=== PATIENT | male | born 1960 | race African-American/Black ===

== ENCOUNTER 2017-11-14 08:53 | Emergency (ER) | payer BC ==
[2017-11-14 09:15] VITALS: BP 141/97
--- NOTE | 2017-11-14 09:21 | UC ---
Back Pain HPI - HPI Summary HPI Summary: Patient has a history of chronic low back pain. Was being seen previously at the pain clinic by Dr. Candelario and receiving SID. Has not been there since March as he states the injections were not providing him with long-lasting pain relief so he stopped going. He has been taking ibuprofen and just dealing with the discomfort. He states he woke up this morning and was hardly able to get out of bed. 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 There has been no recent acute injury. He states the pain is on the left low back that he often has numbness and tingling radiating down his right leg. No saddle anesthesia. Is not interested in narcotic pain medicine. Is just looking for options. - History of Current Complaint Chief Complaint: UCBackPain Stated Complaint: BACK PAIN Time Seen by Provider: 11/14/17 09:16 Hx Obtained From: Patient Onset/Duration: Sudden Onset, Lasting Days, Still Present Timing: Constant Severity Initially: Moderate Severity Currently: Moderate Pain Intensity: 6 Pain Scale Used: 0-10 Numeric Character: Sharp Aggravating Factor(s): Movement, Bending Alleviating Factor(s): Rest Associated Signs And Symptoms: Positive: Tingling. Negative: Swelling, Redness , Bruising, Bladder Incontinence, Bowel Incontinence - Allergies/Home Medications Allergies/Adverse Reactions: Allergies Allergy/AdvReac Type Severity Reaction Status Date / Time No Known Allergies Allergy Verified 11/14/17 09:15 PMH/Surg Hx/FS Hx/Imm Hx - Additional Past Medical History Additional PMH: CHRONIC LOW BACK PAIN Cardiovascular History: Hypertension Neurological History: TIA - Surgical History Surgical History: Yes Surgery Procedure, Year, and Place: RT THUMB ORIF - Family History Known Family History: Positive: Hypertension - Social History Alcohol Use: None Substance Use Type: None Smoking Status (MU): Heavy Every Day Tobacco Smoker Type: Cigarettes Amount Used/How Often: 1/2 ppd Length of Time of Smoking/Using Tobacco: since age 24 Have You Smoked in the Last Year: Yes Review of Systems Constitutional: Negative Skin: Negative Respiratory: Negative Cardiovascular: Negative Gastrointestinal: Negative Musculoskeletal: Decreased ROM, Myalgia All Other Systems Reviewed And Are Negative: Yes Physical Exam Triage Information Reviewed: Yes Appearance: Well-Appearing, Well-Nourished, Pain Distress - MOD Vital Signs: Initial Vital Signs Temp 98.9 F 11/14/17 09:05 Pulse 97 11/14/17 09:05 Resp 16 11/14/17 09:05 BP 141/97 11/14/17 09:05 Pulse Ox 100 11/14/17 09:05 Vital Signs Reviewed: Yes Eyes: Positive: Conjunctiva Clear ENT: Positive: Hearing grossly normal Neck: Positive: Supple Respiratory: Positive: No respiratory distress, No accessory muscle use Cardiovascular: Positive: Pulses Normal Abdomen Description: Positive: Soft Musculoskeletal: Positive: No Edema, ROM Limited @ - BACK Neurological: Positive: Alert Psychological: Positive: Age Appropriate Behavior Skin: Negative: rashes Back Pain Course/Dx - Course Course Of Treatment: PT DECLINES NARCOTICS - Differential Dx/Diagnosis Provider Diagnoses: ACUTE ON CHRONIC LOW BACK PAIN Discharge - Sign-Out/Discharge Documenting (check all that apply): Discharge/Admit/Transfer - Discharge Plan Condition: Stable Disposition: HOME Prescriptions: Ketorolac TAB * [Toradol TAB *] 10 mg PO Q6H PRN #20 tab PRN Reason: Pain Patient Education Materials: Chronic Back Pain (ED) Forms: *Gen. Provider Communication, *Work Release Referrals: Kaley Candelario MD [Medical Doctor] - 1 Week Guille Perez DO [Doctor of Osteopathy] - If Needed Additional Instructions: YOU MAY BENEFIT FROM RETURNING TO PAIN MANAGEMENT. CALL DR. CANDELARIO'S OFFICE FOR FOLLOW-UP. ALSO CONSIDER THE [facility]OW. REFERRAL FOR PHYSICAL THERAPY PROVIDED TODAY. [facility] [address] [place] [id number] - Billing Disposition and Condition Condition: STABLE Disposition: Home
== END 2017-11-14 10:22 | disposition home or self-care (01) ==
LOC: UCEAST 08:53
DX: M54.5 Low back pain (principal); G89.29 Other chronic pain; I10 Essential (primary) hypertension; Z86.73 Personal history of transient ischemic attack (TIA), and cerebral infarction without residual deficits; F17.210 Nicotine dependence, cigarettes, uncomplicated
CPT/HCPCS: 99212; G0463

== ENCOUNTER 2018-03-06 07:02 | Emergency (ER) | payer BC ==
[2018-03-06 07:16] VITALS: BP 148/86
[2018-03-06] MEDS ORDERED: Ketorolac INJ* 30 MG/ML 1 ML VIAL IM ONE (07:39)
--- NOTE | 2018-03-06 07:39 | UC ---
Back Pain HPI - HPI Summary HPI Summary: The patient is a 58-year-old male with a history of chronic low back pain due to degenerative disc disease. States he has 2 herniated lumbar disc. 2 days ago he was lifting groceries and bent down to place a bag on the floor. He felt a sudden pop in his back and experienced right leg numbness. The numbness persists in his right leg but has lessened. He has no bladder or bowel dysfunction. Is not taken anything for pain. He frequently goes to the pain clinic and has steroid injections. - History of Current Complaint Chief Complaint: UCBackPain Stated Complaint: BACK PAIN Time Seen by Provider: 03/06/18 07:28 Hx Obtained From: Patient Onset/Duration: Sudden Onset Timing: Constant Severity Initially: Severe Severity Currently: Severe Pain Intensity: 8 Pain Scale Used: 0-10 Numeric Character: Dull, Aching, Throbbing, Spasmodic Aggravating Factor(s): Movement, Bending, Walking, Cough Alleviating Factor(s): Rest Associated Signs And Symptoms: Positive: Numbness - right leg Full Body (No Head): 1 - pain - Allergies/Home Medications Allergies/Adverse Reactions: Allergies Allergy/AdvReac Type Severity Reaction Status Date / Time No Known Allergies Allergy Verified 03/06/18 07:08 Home Medications: Home Medications Atorvastatin* [Lipitor 10 MG*] 10 mg PO DAILY 03/06/18 [History Confirmed ] PMH/Surg Hx/FS Hx/Imm Hx Previously Healthy: Yes Endocrine History: Dyslipidemia Cardiovascular History: Hypertension - Surgical History Surgical History: Yes Surgery Procedure, Year, and Place: RT THUMB ORIF - Family History Known Family History: Positive: Hypertension - Social History Alcohol Use: None Substance Use Type: None Smoking Status (MU): Light Every Day Tobacco Smoker Type: Cigarettes Amount Used/How Often: 1/2 ppd Length of Time of Smoking/Using Tobacco: since age 24 Have You Smoked in the Last Year: Yes Household Exposure Type: Cigarettes Review of Systems Constitutional: Negative Skin: Negative Eyes: Negative ENT: Negative Respiratory: Negative Cardiovascular: Negative Gastrointestinal: Negative Genitourinary: Negative Motor: Negative Neurovascular: Negative Musculoskeletal: Myalgia Neurological: Negative Psychological: Negative Is Patient Immunocompromised?: No All Other Systems Reviewed And Are Negative: Yes Physical Exam Triage Information Reviewed: Yes Appearance: Well-Appearing, Well-Nourished, Pain Distress Vital Signs: Initial Vital Signs Temp 97 F 03/06/18 07:10 Pulse 78 03/06/18 07:10 Resp 16 03/06/18 07:10 BP 148/86 03/06/18 07:10 Pulse Ox 100 03/06/18 07:10 Vital Signs Reviewed: Yes Eyes: Positive: Conjunctiva Clear ENT: Positive: Hearing grossly normal. Negative: Nasal congestion, Nasal drainage, Tonsillar swelling, Dental tenderness Neck: Positive: Supple, Nontender Respiratory: Positive: Lungs clear, Normal breath sounds, No respiratory distress, No accessory muscle use Cardiovascular: Positive: RRR, No Murmur Musculoskeletal: Positive: ROM Intact, No Edema Neurological: Positive: Alert Psychological Exam: Normal Back Pain Course/Dx - Differential Dx/Diagnosis Provider Diagnoses: sciatica Discharge - Sign-Out/Discharge Documenting (check all that apply): Patient Departure All imaging exams completed and their final reports reviewed: No Studies - Discharge Plan Condition: Stable Disposition: HOME Prescriptions: Cyclobenzaprine TAB* [Flexeril 10 MG TAB*] 5 mg PO TID PRN #12 tab PRN Reason: Pain Naproxen Sodium [Naproxen Sodium 500 MG TAB] 500 mg PO BID PRN #30 tab PRN Reason: Pain Patient Education Materials: Sciatica (ED) Referrals: Kevin Perez MD [Primary Care Provider] - As Soon As Possible Additional Instructions: recheck first available appt with your MD or at pain clinic return for new or worsening symptoms muscle relaxer may cause drowsiness don't take and drive or work - Billing Disposition and Condition Condition: STABLE Disposition: Home
== END 2018-03-06 08:15 | disposition home or self-care (01) ==
LOC: UCEAST 07:02
DX: M54.40 Lumbago with sciatica, unspecified side (principal); E78.5 Hyperlipidemia, unspecified; F17.210 Nicotine dependence, cigarettes, uncomplicated; I10 Essential (primary) hypertension; Z79.899 Other long term (current) drug therapy
CPT/HCPCS: 99212; G0463; J1885

== ENCOUNTER 2018-05-13 11:00 | Emergency (ER) | payer BC ==
[2018-05-13 11:25] VITALS: BP 150/93
--- NOTE | 2018-05-13 11:46 | UC ---
FLU HPI - HPI Summary HPI Summary: 58 y/o male with + TOB , + htn, states has increased cough, painful swallowing , body chills, fever- tactile, bady aches. no SOB. 1/3-1/2 PPD smoking. - History of Current Complaint Chief Complaint: UCRespiratory Stated Complaint: SORE THROAT,FEVER Time Seen by Provider: 05/13/18 11:42 Hx Obtained From: Patient Onset/Duration: Sudden Onset, Lasting Days Severity Currently: Mild Severity Initially: Moderate Pain Intensity: 7 Pain Scale Used: 0-10 Numeric Associated Signs & Symptoms: Positive: Fever - tactile, F/C, Cough, Sore Throat. Negative: Headache Related Hx: Smoking - Allergy/Home Medications Allergies/Adverse Reactions: Allergies Allergy/AdvReac Type Severity Reaction Status Date / Time No Known Allergies Allergy Verified 05/13/18 11:26 PMH/Surg Hx/FS Hx/Imm Hx Previously Healthy: Yes - htn - Surgical History Surgical History: Yes Surgery Procedure, Year, and Place: RT THUMB ORIF - Family History Known Family History: Positive: Hypertension - Social History Alcohol Use: None Substance Use Type: None Smoking Status (MU): Light Every Day Tobacco Smoker Type: Cigarettes Amount Used/How Often: 1/2 ppd Length of Time of Smoking/Using Tobacco: since age 24 Have You Smoked in the Last Year: Yes Household Exposure Type: Cigarettes Review of Systems All Other Systems Reviewed And Are Negative: Yes Constitutional: Positive: Fever, Chills, Fatigue ENT: Positive: Sore Throat, Sinus Congestion, Sinus Pain/Tenderness Respiratory: Positive: Cough Is Patient Immunocompromised?: No Physical Exam Triage Information Reviewed: Yes Appearance: Well-Appearing, No Pain Distress, Well-Nourished Vital Signs: Initial Vital Signs Temp 98 F 05/13/18 11:21 Pulse 91 05/13/18 11:21 Resp 18 05/13/18 11:21 BP 150/93 05/13/18 11:21 Pulse Ox 98 05/13/18 11:21 Eyes: Positive: Conjunctiva Clear ENT: Positive: Pharyngeal erythema - + exudates b/l with moderate erythema,, TMs normal, Tonsillar swelling, Tonsillar exudate, Uvula midline. Negative: Sinus tenderness Neck: Positive: Supple, Nontender, Enlarged Nodes @ - minimal submand, b/l, non- tender Respiratory: Positive: Chest non-tender, Lungs clear, Normal breath sounds, No respiratory distress, No accessory muscle use. Negative: Crackles, Rhonchi, Stridor, Wheezing, Expiration Cardiovascular: Positive: RRR, No Murmur Psychological Exam: Normal Skin Exam: Normal Flu Course/Dx - Course Course Of Treatment: rapid strep- negative, likely viral, conservative treatment, motrin for pain, increase fluids - Differential Dx/Diagnosis Differential Diagnosis/HQI/PQRI: Bronchitis, Broncholiolitis, Upper Respiratory Infection Provider Diagnosis: Viral syndrome Discharge - Sign-Out/Discharge Documenting (check all that apply): Patient Departure All imaging exams completed and their final reports reviewed: No Studies - Discharge Plan Condition: Good Disposition: HOME Prescriptions: Albuterol HFA INHALER* [Ventolin HFA Inhaler*] 1 puff INH Q4H PRN #1 mdi PRN Reason: shortness of breath Patient Education Materials: Viral Syndrome (ED) Forms: *Work Release Referrals: Kevin Perez MD [Primary Care Provider] - Additional Instructions: - Increase fluids - Motrin/ tylenol for pain - Albuterol as needed for shortness of breath - work note given - Cough drops, cough medicine for cough - Billing Disposition and Condition Condition: GOOD Disposition: Home
== END 2018-05-13 12:28 | disposition home or self-care (01) ==
LOC: UCEAST 11:00
DX: B34.9 Viral infection, unspecified (principal); F17.210 Nicotine dependence, cigarettes, uncomplicated
CPT/HCPCS: 87651; 99212; G0463

== ENCOUNTER 2018-06-01 12:11 | Emergency (ER) | payer BC ==
[2018-06-01 12:24] VITALS: BP 149/96
--- NOTE | 2018-06-01 12:53 | UC ---
Throat Pain/Nasal Crow HPI - HPI Summary HPI Summary: uri sx 2 weeks ago sen and dx with viral illness-all symptoms resolved--now for the past 3-4 days nasal congestion, sore under tongue, sore throat and cough, no fevers, nausea or vomiting - History of Current Complaint Chief Complaint: UCGeneralIllness Stated Complaint: SORE THROAT Time Seen by Provider: 06/01/18 12:40 Hx Obtained From: Patient Onset/Duration: Sudden Onset, Lasting Days - 3, Still Present Severity: Mild Pain Intensity: 1 Pain Scale Used: 0-10 Numeric Cough: Productive Associated Signs & Symptoms: Positive: Negative, Sinus Discomfort, Nasal Discharge Related History: Smoking - Allergies/Home Medications Allergies/Adverse Reactions: Allergies Allergy/AdvReac Type Severity Reaction Status Date / Time No Known Allergies Allergy Verified 06/01/18 12:25 PMH/Surg Hx/FS Hx/Imm Hx Previously Healthy: No Endocrine History: Dyslipidemia Cardiovascular History: Hypertension - Surgical History Surgical History: Yes Surgery Procedure, Year, and Place: RT THUMB ORIF - Family History Known Family History: Positive: Hypertension - Social History Occupation: Employed Full-time Lives: With Family Alcohol Use: None Substance Use Type: None Smoking Status (MU): Light Every Day Tobacco Smoker Type: Cigarettes Amount Used/How Often: 1/2 ppd Length of Time of Smoking/Using Tobacco: since age 24 Have You Smoked in the Last Year: Yes Household Exposure Type: Cigarettes Cessation Counseling: Counseled 3+Min - 10 Min Review of Systems All Other Systems Reviewed And Are Negative: Yes Constitutional: Positive: Negative Skin: Positive: Negative Eyes: Positive: Negative ENT: Positive: Sore Throat, Nasal Discharge, Sinus Congestion Respiratory: Positive: Cough Cardiovascular: Positive: Negative Gastrointestinal: Positive: Negative Genitourinary: Positive: Negative Motor: Positive: Negative Neurovascular: Positive: Negative Musculoskeletal: Positive: Negative Neurological: Positive: Negative Psychological: Positive: Negative Is Patient Immunocompromised?: No Physical Exam Triage Information Reviewed: Yes Appearance: Well-Appearing, No Pain Distress, Well-Nourished Vital Signs: Initial Vital Signs Temp 98.6 F 06/01/18 12:19 Pulse 82 06/01/18 12:19 Resp 16 06/01/18 12:19 BP 149/96 06/01/18 12:19 Pulse Ox 100 06/01/18 12:19 Vital Signs Reviewed: Yes Eye Exam: Normal Eyes: Positive: Conjunctiva Clear ENT Exam: Normal ENT: Positive: Normal ENT inspection, Hearing grossly normal, Pharynx normal, Nasal congestion, Nasal drainage, TMs normal, Uvula midline, Other - viral sore under tongue. Negative: Trismus, Muffled voice, Hoarse voice, Dental tenderness Dental Exam: Normal Neck exam: Normal Neck: Positive: Supple, Nontender, No Lymphadenopathy Respiratory Exam: Normal Respiratory: Positive: Chest non-tender, Lungs clear, No respiratory distress, No accessory muscle use, Wheezing Cardiovascular Exam: Normal Cardiovascular: Positive: RRR, No Murmur, Pulses Normal, Brisk Capillary Refill Abdominal Exam: Normal Musculoskeletal Exam: Normal Musculoskeletal: Positive: Strength Intact, ROM Intact, No Edema Neurological Exam: Normal Neurological: Positive: Alert, Muscle Tone Normal Psychological Exam: Normal Skin Exam: Normal Diagnostics - Laboratory Diagnostic Studies Completed/Ordered: rst (-) Throat Pain/Nasal Course/Dx - Course Assessment/Plan: flonase, albuterol, nagic mouth wash, add zithromax if not improving in 2-3 days, nicotine cesassation information, foolow with pcp regarding evevated blood pressure - Differential Dx/Diagnosis Provider Diagnosis: Nicotine dependence, Hypertension, URI, acute, Aphthous ulcer Discharge - Sign-Out/Discharge Documenting (check all that apply): Patient Departure All imaging exams completed and their final reports reviewed: No Studies - Discharge Plan Condition: Stable Disposition: HOME Prescriptions: Albuterol HFA INHALER* [Ventolin HFA Inhaler*] 2 puff INH Q4H PRN #1 mdi PRN Reason: cough wheeze Azithromycin TAB* [Zithromax TAB (Z-KELSI) 250 mg #6 tabs] 2 tab PO .TODAY, THEN 1 DAILY #1 kelsi Fluticasone NASAL SPRAY 50MCG* [Flonase NASAL SPRAY 50MCG*] 2 spray BOTH NARES DAILY #1 btl Magic Mouth Was-CLARISA/MAAL/LIDO* 5 ml SWISH SPIT QID #200 ml Patient Education Materials: How to Stop Smoking (ED), Canker Sores (ED), Upper Respiratory Infection (DC), Hypertension (ED), How to Use a Metered-Dose Inhaler and a Spacer (ED), How to Use Nasal [place] (ED) Forms: *Work Release Referrals: Kevin Perez MD [Primary Care Provider] - 1 Week - Billing Disposition and Condition Condition: STABLE Disposition: Home
== END 2018-06-01 13:35 | disposition home or self-care (01) ==
LOC: UCEAST 12:11
DX: J06.9 Acute upper respiratory infection, unspecified (principal); I10 Essential (primary) hypertension; K12.0 Recurrent oral aphthae; F17.210 Nicotine dependence, cigarettes, uncomplicated
CPT/HCPCS: 87651; 99212; G0463

== ENCOUNTER 2018-07-03 11:55 | Emergency (ER) | payer BC ==
[2018-07-03 12:10] VITALS: BP 144/80
[2018-07-03] MEDS ORDERED: Triamcinolone Acetonide* 40 MG/ML 1 ML VIAL IM ONE (12:59)
--- NOTE | 2018-07-03 13:02 | UC ---
Skin Complaint HPI - HPI Summary HPI Summary: The patient is a 58-year-old male that presents here with a pruritic rash 2 weeks. Getting some lesions on his arms. He states it started on his abdomen and later spread to his back. It also involves his groin. Seen here twice in May for complaints of sore throat. She repeats his rash to using a goose down comforter. - History of Current Complaint Chief Complaint: UCSkin Time Seen by Provider: 07/03/18 12:53 Stated Complaint: HIVES Hx Obtained From: Patient Onset/Duration: Gradual Onset, Lasting Weeks Timing: Constant Onset Severity: Mild Current Severity: Moderate Pain Intensity: 0 Pain Scale Used: 0-10 Numeric Location: Generalized Character: Pruritus, Redness, Raised Aggravating Factor(s): Nothing Alleviating Factor(s): Nothing Associated Signs & Symptoms: Positive: Rash - Allergy/Home Medications Allergies/Adverse Reactions: Allergies Allergy/AdvReac Type Severity Reaction Status Date / Time No Known Allergies Allergy Verified 07/03/18 12:05 PMH/Surg Hx/FS Hx/Imm Hx Previously Healthy: Yes Respiratory History: Asthma - Surgical History Surgical History: Yes Surgery Procedure, Year, and Place: RT THUMB ORIF - Family History Known Family History: Positive: Hypertension - Social History Alcohol Use: None Substance Use Type: None Smoking Status (MU): Light Every Day Tobacco Smoker Type: Cigarettes Amount Used/How Often: 1/2 ppd Length of Time of Smoking/Using Tobacco: since age 24 Have You Smoked in the Last Year: Yes Household Exposure Type: Cigarettes Review of Systems All Other Systems Reviewed And Are Negative: Yes Constitutional: Positive: Negative Skin: Positive: Rash Eyes: Positive: Negative ENT: Positive: Negative Respiratory: Positive: Negative Cardiovascular: Positive: Negative Gastrointestinal: Positive: Negative Genitourinary: Positive: Negative Motor: Positive: Negative Neurovascular: Positive: Negative Musculoskeletal: Positive: Negative Neurological: Positive: Negative Psychological: Positive: Negative Physical Exam Triage Information Reviewed: Yes Appearance: Well-Appearing, No Pain Distress, Well-Nourished Vital Signs: Initial Vital Signs Temp 98.5 F 07/03/18 12:06 Pulse 75 07/03/18 12:06 Resp 16 07/03/18 12:06 BP 144/80 07/03/18 12:06 Pulse Ox 100 07/03/18 12:06 Vital Signs Reviewed: Yes Eyes: Positive: Conjunctiva Clear ENT: Positive: Hearing grossly normal. 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, Guttate psoriasis Discharge - Sign-Out/Discharge Documenting (check all that apply): Patient Departure All imaging exams completed and their final reports reviewed: No Studies - Discharge Plan Condition: Stable Disposition: HOME Prescriptions: hydrOXYzine HCL TAB* [Atarax TAB*] 25 mg PO QID PRN #20 tab PRN Reason: Itching Patient Education Materials: Acute Rash (ED) Referrals: Kevin Perez MD [Primary Care Provider] - 1 Week Additional Instructions: I am unsure of the cause of your rash ?guttate psoriasis vs contact dermatitis vs other - Billing Disposition and Condition Condition: STABLE Disposition: Home
== END 2018-07-03 13:23 | disposition home or self-care (01) ==
LOC: UCEAST 11:55
DX: R21 Rash and other nonspecific skin eruption (principal); L40.4 Guttate psoriasis; L98.8 Other specified disorders of the skin and subcutaneous tissue; F17.210 Nicotine dependence, cigarettes, uncomplicated; J45.909 Unspecified asthma, uncomplicated
CPT/HCPCS: 96372; 99212; G0463; J3301